=== PATIENT | male | born 1950 | race Caucasian/White ===

== ENCOUNTER 2018-06-25 09:27 | Day surgery (SDC) | payer OTHER ==
[2018-06-25] MEDS ORDERED: Ringers Lactate 1,000 ML IV ONE (10:00)
[2018-06-25] MEDS ORDERED: CEFAZOLIN/SWI 1gm 1 GM/10 ML SYR ONE (10:00)
[2018-06-25] MEDS ORDERED: FENTANYL CITR 100 MCG/2 ML ONE (10:30)
[2018-06-25] MEDS ORDERED: PROPOFOL 200 MG/20 ML VIAL IV ONE (10:31)
[2018-06-25] MEDS ORDERED: LIDOCAINE 1% MPF 2 ML AMPULE ONE (10:33)
[2018-06-25] MEDS ORDERED: MIDAZOLAM HCL 2 MG/2 ML INJ ONE (10:33)
[2018-06-25] MEDS ORDERED: ONDANSETRON HCL 40 MG/20 ML VIAL ONE (10:33)
[2018-06-25] MEDS ORDERED: BUPIVACA 0.25%/EPI 0.0005% MDV 50 ML VIAL ONE (10:46)
[2018-06-25] MEDS ORDERED: EPHEDRINE SULF 50 MG/10 ML SYR ONE (11:20)
--- NOTE | 2018-06-25 11:26 | P.OP ---
Preoperative diagnosis: RIGHT calf abscess Postoperative diagnosis: Right Calf infected hematoma Primary procedure: Incision and Drainage of infected Right Calf infected hematoma Secondary procedure: excision of ischemic skin Anesthesia: GETA, + local Estimated blood loss: <2cc Specimen: cultures sent Findings: hematoma with capsule, ischemic skin Complications: None Transferred to: Recovery Room Condition: Good
--- NOTE | 2018-06-25 22:10 | OP ---
Date of Procedure: 06/25/2018 Surgeon: Darrius Pisano MD, Preoperative Diagnosis: Right calf abscess. Postoperative Diagnosis: Right calf infected hematoma. Procedures: 1.Incision and drainage of right calf infected hematoma. 2.Excision of ischemic skin. Anesthesia: General endotracheal plus local with 0.25% Marcaine with epinephrine. Estimated Blood Loss: Less than 2 cc. Specimen: Cultures sent. Findings: Hematoma with capsule and skin overlying. Complications: None. Disposition: Transferred to recovery room in good condition. Procedure In Detail: After informed consent was obtained, the patient was brought to the operating r oom, prepped and draped in the usual sterile fashion. After adequate anesthesia was achieved, an ell iptical incision was made overlying an area of ischemic skin down on the area of the right posterior calf. Dissection continued down through the subcutaneous fat to encounter a hematoma, which appeared to have capsular surrounding in this area and had sequelae of recent infection. This is completely drained and the capsule was removed, and the remaining area was cleaned with curette down to good via ble tissue. The necrotic fat was also removed from the area and ischemic skin as well for approximat russell 4 cm size x 1.5 cm. The area was then copiously irrigated. Hemostasis was achieved easily with electrocautery. The wound was then packed with damp-to-dry dressings. A sterile dressing was placed over top. The patient tolerated the procedure well without evidence of complications, transferred t o the PACU in good condition. All counts were correct at the end of the case. LY/ANJU Voice ID: [id number] Report ID: [id number]
== END 2018-06-25 12:58 | disposition home or self-care (01) ==
LOC: OR 09:27
PROVIDERS: ATTEND Surgery
PROC: 0HBKXZZ Excision of Right Lower Leg Skin, External Approach (ICD-10-PCS; 2018-06-25)
PROC: 0J9N0ZX Drainage of Right Lower Leg Subcutaneous Tissue and Fascia, Open Approach, Diagnostic (ICD-10-PCS; principal; 2018-06-25 11:30)
DX: S80.11XA Contusion of right lower leg, initial encounter (principal); L72.0 Epidermal cyst; Z88.3 Allergy status to other anti-infective agents; Z88.2 Allergy status to sulfonamides
CPT/HCPCS: 87070; 87075; 87077; 87186; 87205; 88304; J0690; J2001; J2250; J2405; J2704; J3010